=== PATIENT | female | born 1960 | race Caucasian/White ===

== ENCOUNTER 2019-04-11 06:58 | Day surgery (SDC) | payer BC ==
[2019-04-11] MEDS ORDERED: fentaNYL 100 MCG/2 ML SDV ONE (07:15)
[2019-04-11] MEDS ORDERED: Propofol 200 MG/20 ML SDV ONE ×2 (07:15→08:19)
[2019-04-11] MEDS ORDERED: Midazolam 1 MG/ML 2 ML SDV ONE (07:15)
[2019-04-11] MEDS ORDERED: Glycopyrrolate 0.2 MG/ML 2 ML SDV IVPUSH ONE (07:22)
[2019-04-11] MEDS: Sodium Chloride 0.9% 1,000 ML IV SCH (07:38)
[2019-04-11] MEDS: Acetylcysteine 600 MG, Water For Injection,Sterile 57 ML ONE ×2 (08:05)
[2019-04-11] MEDS ORDERED: Alum Hydrox/Mag Hydrox/Simeth 360 ML, Lidocaine 2% 60 ML PO SCH ×2 (09:45)
--- NOTE | 2019-04-11 12:36 | OR ---
DATE OF PROCEDURE: 04/11/2019 SURGEON: Vega Garcia MD PROCEDURE: 1. Esophagogastroduodenoscopy. 2. Barrx radiofrequency ablation of dysplasia, distal esophagus. COMPLICATIONS: None. TRANSITIONAL NURSE: None. PREOPERATIVE DIAGNOSIS: Esophageal dysplasia. POSTOPERATIVE DIAGNOSIS: Esophageal dysplasia. RISKS: Risks, benefits, alternatives, and limitations including, but not limited to infection, bleeding, and perforation were explained to the patient, and they wished to proceed. PROCEDURE IN DETAIL: The patient was placed in left lateral decubitus position. The EGD scope was introduced and advanced atraumatically to the second part of the duodenum. No evidence of duodenitis or abnormality was noted. Within the stomach itself, there was no evidence of gastritis or ulceration. The scope was brought back and the top of the intestinal metaplasia was noted to be a 38 cm with the top of the gastric fold noted to be at 40. The distal esophagus was then irrigated with N-acetylcysteine. The guidewire was then advanced under direct visualization into the stomach. The endoscope was removed leaving the guidewire in place. The Barrx 360 Express RFA balloon catheter was then advanced over the guidewire. The scope was introduced under direct visualization. The proximal edge of electrode was 1 cm above the ROHIT. This was inflated, ablated 1 time. This was then removed. The scraper was then used to mobilize the ablated tissue. The process was then repeated a second time. At the end of the treatment, no zone overlaps at the top of the gastric fold. The scope, catheter, and guidewire were then removed. The scope was then reintroduced and no abnormalities noted. The patient tolerated the procedure well. Vega Garcia MD /[id number]
== END 2019-04-11 09:45 | disposition home or self-care (01) ==
LOC: JP.SDS 06:58
PROVIDERS: ATTEND Surgery
DX: K22.719 Barrett's esophagus with dysplasia, unspecified (principal); K21.9 Gastro-esophageal reflux disease without esophagitis
CPT/HCPCS: C1713; C1886; J0132; J2250; J2704; J3010; J7030

== ENCOUNTER 2019-06-20 06:23 | Day surgery (SDC) | payer BC ==
[2019-06-20] MEDS ORDERED: Sodium Chloride 0.9% 1,000 ML IV SCH (07:00)
[2019-06-20] MEDS ORDERED: Propofol 200 MG/20 ML SDV ONE (07:35)
[2019-06-20] MEDS ORDERED: Midazolam 1 MG/ML 2 ML SDV ONE (07:35)
[2019-06-20] MEDS ORDERED: fentaNYL 100 MCG/2 ML SDV ONE (07:35)
[2019-06-20] MEDS ORDERED: Glycopyrrolate 0.2 MG/ML 2 ML SDV ONE (07:38)
[2019-06-20] MEDS ORDERED: Acetylcysteine 600 MG, Water For Injection,Sterile 57 ML ONE ×2 (08:00)
[2019-06-20] MEDS ORDERED: Alum Hydrox/Mag Hydrox/Simeth 360 ML, Lidocaine 2% 60 ML PO PRN ×2 (08:21)
--- NOTE | 2019-06-20 12:34 | OR ---
DATE OF PROCEDURE: 06/20/2019 SURGEON: Vega Garcia MD PROCEDURE: 1. Esophagogastroduodenoscopy. 2. Murry's radiofrequency ablation. FINDINGS: Top of gastric fold from the bite block at 40, top of intestinal metaplasia at 38. COMPLICATIONS: None. DATA CONTROL CLERK SUPERVISOR: None. RISKS: Risks, benefits, alternatives, and limitations including but not limited to infection, bleeding, and perforation explained to the patient, who wished to proceed. PROCEDURE IN DETAIL: The patient was placed in left lateral decubitus position. The EGD scope was introduced and advanced atraumatically to second part of the duodenum. No abnormalities noted. Within the stomach itself, no gastritis. The top of the TGS and ROHIT as described above were identified. Mucomyst was used to clear the distal esophagus. This was then suctioned and removed. A thick wire was then introduced under direct visualization. The scope was removed. The device was then introduced and advanced to straddle the metaplasia. The scope was reintroduced, and the Murry's location was verified. The balloon was inflated. Energy was delivered. Device and wire were removed. The scope was reintroduced with the scraper. The mucosa was scraped. The wire was then reintroduced, and the process was repeated. The scope was then reintroduced, and good ablation was noted. No abnormalities were noted after ablation. The EGD scope was removed. The patient tolerated the procedure well. Vega Garcia MD /[id number]
== END 2019-06-20 09:55 | disposition home or self-care (01) ==
LOC: JP.SDS 06:23
PROVIDERS: ATTEND Surgery
DX: K22.70 Barrett's esophagus without dysplasia (principal); K31.89 Other diseases of stomach and duodenum; K21.9 Gastro-esophageal reflux disease without esophagitis; I10 Essential (primary) hypertension; M19.90 Unspecified osteoarthritis, unspecified site; E66.9 Obesity, unspecified; Z68.41 Body mass index [BMI] 40.0-44.9, adult
CPT/HCPCS: 43270; A9270; C1713; C1886; J0132; J2250; J2704; J3010; J3490; J7030

== ENCOUNTER 2019-08-31 06:34 | Day surgery (SDC) | payer BC ==
[2019-08-31] MEDS ORDERED: Sodium Chloride 0.9% 1,000 ML IV SCH (07:00)
[2019-08-31] MEDS ORDERED: fentaNYL 100 MCG/2 ML SDV ONE (07:21)
[2019-08-31] MEDS ORDERED: Propofol 200 MG/20 ML SDV ONE ×2 (07:21→08:01)
[2019-08-31] MEDS ORDERED: Midazolam 1 MG/ML 2 ML SDV ONE (07:22)
[2019-08-31] MEDS ORDERED: Glycopyrrolate 0.2 MG/ML 2 ML SDV ONE (07:23)
[2019-08-31] MEDS ORDERED: Acetylcysteine 600 MG, Water For Injection,Sterile 57 ML ONE ×2 (08:00)
[2019-08-31] MEDS ORDERED: Lidocaine 2% 60 ML, Alum Hydrox/Mag Hydrox/Simeth 360 ML PO PRN ×2 (09:17)
--- NOTE | 2019-08-31 13:51 | OR ---
DATE OF PROCEDURE: 08/31/2019 SURGEON: Vega Garcia MD PROCEDURES: 1. Esophagogastroduodenoscopy. 2. Barrx radiofrequency ablation. COMPLICATIONS: None. CUSTOMER SERVICE SECURITY OFFICER: None. 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 COMPLICATIONS: None. CUSTOMER SERVICE SECURITY OFFICER: None. ANESTHESIA: MAC. RISKS: Risks, benefits, alternatives, and limitations including, but not limited to infection, bleeding, and perforation were explained to the patient, who wished to proceed. PROCEDURE IN DETAIL: The patient was placed in left lateral decubitus position. EGD scope was introduced and advanced atraumatically to the second part of the duodenum. Within the duodenum itself, there was no abnormalities. Within the stomach, no evidence of gastritis. The GE junction showed excellent response to the ablation. There are only a few small tongues remaining, probably Murry's versus reflux disease. This was biopsied in all 4 quadrants and the known areas using cold biopsy forceps. The scope was then removed after treating with Mucomyst and then subsequently introducing and advancing a wire under direct guidance. This was then exchanged for the 360 ablator. The top of the gastric folds was at 38 and the top of the intestinal metaplasia at 37. This straddled that area. The 360 was then deployed and the RFA was executed without difficulty. The device was then removed. The scraper was then utilized and the process was then repeated by reintroducing a wire and re-ablating. No abnormalities were noted with inspection. The patient tolerated the procedure well. Vega Garcia MD /[id number]
== END 2019-08-31 09:39 | disposition home or self-care (01) ==
LOC: JP.SDS 06:34
PROVIDERS: ATTEND Surgery
DX: K22.70 Barrett's esophagus without dysplasia (principal); K31.89 Other diseases of stomach and duodenum
CPT/HCPCS: 43239; 43270; A9270; C1713; C1886; J2250; J2704; J3010; J3490; J7030; 88305